=== PATIENT | male | born 1975 | race Caucasian/White ===

== ENCOUNTER 2018-09-13 08:24 | Emergency (ER) | payer SELFPAY ==
[~2018-09-13] VITALS: Ht 175.3 cm; Wt 79.4 kg
[2018-09-13 08:30] VITALS: BP 110/97
--- NOTE | 2018-09-13 08:34 | NUR ---
ED Nurse Note: Patient brought in to ER by ambulance from friend's house due to RLQ abdominal sharp pain / which started by 0730 this morning. pt aao x4 and calm and cooperative. pt is ambulatory and skin warm to touch and no skin issue noted at this moment.
--- NOTE | 2018-09-13 08:42 | Emergency Room Report ---
History of Present Illness General Chief Complaint: Abdominal Pain Source: Patient Present Illness HPI Patient presents via EMS with right lower quadrant pain. This began gradually but then became severe this morning. It's that sharp stabbing pain 9/10 at this time. He took his last [place] earlier today with some minimal relief. There is no nausea, vomiting or diarrhea. He moved his bowels normally yesterday ("large dump".). Denies fevers or chills. He's never had pain like this before. He denies history of renal stones. He does suffer from chronic back pain. He feels this is not related to that. There is no dysuria or hematuria. The patient is a smoker. He also admits to THC use. Is any other drugs. He recently moved from [place]. He claims he has had a stroke several years ago and also is status post myocardial infarction. Allergies: Coded Allergies: KETOROLAC (Verified Allergy, Unknown, 09/13/18) LATEX (Verified Allergy, Unknown, 09/13/18) TRAMADOL (Verified Allergy, Unknown, 09/13/18) Patient History Past Medical History: see triage record Social History: Reports: smoking, drug use - THC Social History Narrative recent moved from [facility] Reviewed Nursing Documentation: PMH: Agreed; PSxH: Agreed Nursing Documentation-PMH Hx Cardiac Problems: Yes Hx Hypertension: Yes Review of Systems All Other Systems: negative except mentioned in HPI Physical Exam Vital Signs Date Time Temp Pulse Resp B/P (MAP) Pulse Ox O2 Delivery O2 Flow Rate FiO2 09/13/18 08:23 98.8 90 18 130/90 100 Room Air Sp02 EP Interpretation: reviewed, normal General Appearance: well appearing, GCS 15, mild distress - With pain Head: normocephalic Eyes: bilateral eye normal inspection, bilateral eye PERRL ENT: moist mucus membranes - Poor dentition Neck: supple Respiratory: lungs clear, normal breath sounds Cardiovascular #1: regular rate, rhythm Cardiovascular #2: 2+ radial (R) Gastrointestinal: normal bowel sounds, no mass, non-distended, no rebound, guarding - Right lower quadrant, tenderness Genitourinary: no CVA tenderness Musculoskeletal: back normal, normal range of motion Neurologic: alert, oriented x3, grossly normal Psychiatric: mood/affect normal Skin: normal inspection, warm/dry Medical Decision Making Diagnostic Impression: Primary Impression: Abdominal pain Qualified Codes: R10.31 - Right lower quadrant pain Additional Impression: Proctitis ER Course Patient presents with right lower quadrant pain. Differential includes muscle strain, renal stone, appendicitis, urinary tract infection amongst others. The patient will be evaluated with labs, chest x-ray and CT the abdomen with contrast. The patient will be treated with IV hydration, Reglan, Benadryl and a small dose of morphine. EKG without injury. CXR with scarring. WBC cassy. CMP unremarkable. UA clear. Tox THC. CT with proctitis vs impaction. Patient again reports no problems moving his bowels. Exam improved. Discussed findings. Antibiotics started for proctitis. Patient stable for outpatient observation and treatment. Laboratory Tests Test 09/13/18 08:50 09/13/18 09:01 White Blood Count 7.5 K/UL (4.8-10.8) Red Blood Count 4.78 M/UL (4.70-6.10) Hemoglobin 11.5 G/DL (14.2-18.0) L Hematocrit 35.9 % (42.0-52.0) L Mean Corpuscular Volume 75 FL (80-99) L Mean Corpuscular Hemoglobin 24.0 PG (27.0-31.0) L Mean Corpuscular Hemoglobin Concent 32.0 G/DL (32.0-36.0) Red Cell Distribution Width 16.6 % (11.6-14.8) H Platelet Count 331 K/UL (150-450) Mean Platelet Volume 5.4 FL (6.5-10.1) L Neutrophils (%) (Auto) 71.2 % (45.0-75.0) Lymphocytes (%) (Auto) 17.6 % (20.0-45.0) L Monocytes (%) (Auto) 8.1 % (1.0-10.0) Eosinophils (%) (Auto) 1.4 % (0.0-3.0) Basophils (%) (Auto) 1.7 % (0.0-2.0) Prothrombin Time 11.2 SEC (9.30-11.50) Prothrombin Time INR 1.1 (0.9-1.1) PTT 28 SEC (23-33) Sodium Level 140 MMOL/L (136-145) Potassium Level 3.8 MMOL/L (3.5-5.1) Chloride Level 104 MMOL/L (98-107) Carbon Dioxide Level 24 MMOL/L (21-32) Anion Gap 12 mmol/L (5-15) Blood Urea Nitrogen 14 mg/dL (7-18) Creatinine 0.8 MG/DL (0.55-1.30) Estimate Glomerular Filtration Rate > 60 mL/min (>60) Glucose Level 95 MG/DL (74-106) Calcium Level 8.7 MG/DL (8.5-10.1) Total Bilirubin 0.3 MG/DL (0.2-1.0) Aspartate Amino Transferase (AST) 17 U/L (15-37) Alanine Aminotransferase (ALT) 27 U/L (12-78) Alkaline Phosphatase 92 U/L (46-116) Total Creatine Kinase 243 U/L (26-308) Total Protein 7.3 G/DL (6.4-8.2) Albumin 4.1 G/DL (3.4-5.0) Globulin 3.2 g/dL Albumin/Globulin Ratio 1.3 (1.0-2.7) Lipase 196 U/L (73-393) Urine Color Yellow Urine Appearance Clear Urine pH 5 (4.5-8.0) Urine Specific [place] 1.025 (1.005-1.035) Urine Protein Negative (NEGATIVE) Urine Glucose (UA) Negative (NEGATIVE) Urine Ketones 1+ (NEGATIVE) H Urine Blood Negative (NEGATIVE) Urine Nitrite Negative (NEGATIVE) Urine Bilirubin Negative (NEGATIVE) Urine Urobilinogen 1 MG/DL (0.0-1.0) H Urine Leukocyte Esterase 1+ (NEGATIVE) H Urine RBC 0 /HPF (0 - 0) Urine WBC 0-2 /HPF (0 - 0) Urine Squamous Epithelial Cells Occasional /LPF Urine Bacteria Occasional /HPF (NONE) Urine Mucus Occasional /LPF Urine Opiates Screen Negative (NEGATIVE) Urine Barbiturates Screen Negative (NEGATIVE) Phencyclidine (PCP) Screen Negative (NEGATIVE) Urine Amphetamines Screen Negative (NEGATIVE) Urine Benzodiazepines Screen Negative (NEGATIVE) Urine Cocaine Screen Negative (NEGATIVE) Urine Marijuana (THC) Screen Positive (NEGATIVE) H EKG Diagnostic Results Rate: normal Rhythm: NSR ST Segments: no acute changes Rhythm Strip Diag. Results EP Interpretation: yes Rhythm: NSR, no PVC's, no ectopy Chest X-Ray Diagnostic Results Chest X-Ray Diagnostic Results : Chest X-Ray Ordered: Yes # of Views/Limited/Complete: 1 View Indication: Other EP Interpretation: Yes Interpretation: no consolidation, no effusion, no pneumothorax, other - scarring Impression: Other Electronically Signed by: Electronically signed by Sha Hatch MD CT/MRI/US Diagnostic Results CT/MRI/US Diagnostic Results : Imaging Test Ordered: Abdomen/pelvis Impression proctitis vs impaction Last Vital Signs Date Time Temp Pulse Resp B/P (MAP) Pulse Ox O2 Delivery O2 Flow Rate FiO2 09/13/18 12:51 97.8 90 17 114/71 97 Room Air Status: improved Disposition: HOME, SELF-CARE Condition: Improved Scripts Hydrocodone Bit/Acetaminophen 5-325* (NORCO 5-325*) 1 Each Tablet 1 TAB ORAL Q6H PRN for For Pain, #6 TAB 0 Refills Prov: Sha Hatch MD 09/13/18 Levofloxacin* (LEVAQUIN*) 500 Mg Tablet 500 MG ORAL DAILY, #7 TAB Prov: Sha Hatch MD 09/13/18 Metronidazole* (FLAGYL*) 500 Mg Tablet 500 MG ORAL BID, #14 TAB Prov: Sha Hatch MD 09/13/18 Sha Hatch MD Sep 13, 2018 08:42
[2018-09-13] MEDS ORDERED: Morphine Sulfate 2mg/ml Inj(IV/IM USE ONLY) IVP ONE (08:45)
[2018-09-13] MEDS ORDERED: Isovue-300 100ml vial INJ PRN (08:45)
[2018-09-13] MEDS ORDERED: DiphenhydrAMINE 50mg/ml Inj IVP ONE (08:45)
[2018-09-13] MEDS ORDERED: Metoclopramide 10mg/2ml Inj IVP ONE (08:45)
[2018-09-13 09:03] LABS: BASOPHILS % (AUTO) 1.7 % (0.0-2.0); EOSINOPHILS % (AUTO) 1.4 % (0.0-3.0); HEMATOCRIT 35.9 % (42.0-52.0); HEMOGLOBIN 11.5 G/DL (14.2-18.0); LYMPHOCYTES % (AUTO) 17.6 % (20.0-45.0); MEAN CORPUSCULAR VOLUME 75 FL (80-99); MONOCYTES % (AUTO) 8.1 % (1.0-10.0); NEUTROPHILS % (AUTO) 71.2 % (45.0-75.0); PLATELET COUNT 331 K/UL (150-450); RED BLOOD COUNT 4.78 M/UL (4.70-6.10); RED CELL DISTRIBUTION WIDTH 16.6 % (11.6-14.8); WHITE BLOOD COUNT 7.5 K/UL (4.8-10.8)
[2018-09-13 09:04] LABS: APPEARANCE,URINE CLEAR; BILIRUBIN, URINE NEGATIVE (NEGATIVE); GLUCOSE, URINE (UA) NEGATIVE (NEGATIVE); KETONES,URINE 1+ (NEGATIVE); LEUKOCYTE ESTERASE ,URINE 1+ (NEGATIVE); NITRITE,URINE NEGATIVE (NEGATIVE); PH,URINE 5 (4.5-8.0); PROTEIN,URINE NEGATIVE (NEGATIVE); UROBILINOGEN,URINE 1 MG/DL (0.0-1.0)
[2018-09-13 09:10] LABS: INR 1.1 (0.9-1.1)
[2018-09-13 09:11] LABS: ANION GAP 12 mmol/L (5-15); BLOOD UREA NITROGEN 14 mg/dL (7-18); CALCIUM 8.7 MG/DL (8.5-10.1); CARBON DIOXIDE 24 MMOL/L (21-32); CHLORIDE 104 MMOL/L (98-107); CREATININE 0.8 MG/DL (0.55-1.30); POTASSIUM 3.8 MMOL/L (3.5-5.1); SODIUM 140 MMOL/L (136-145)
[2018-09-13 09:16] LABS: ALANINE AMINOTRANSFERASE 27 U/L (12-78); ALBUMIN 4.1 G/DL (3.4-5.0); ALBUMIN/GLOBULIN RATIO 1.3 (1.0-2.7); ALKALINE PHOSPHATASE 92 U/L (46-116); ASPARTATE AMINO TRANSFERASE 17 U/L (15-37); BILIRUBIN,TOTAL 0.3 MG/DL (0.2-1.0); CREATINE KINASE 243 U/L (26-308)
[2018-09-13 09:18] LABS: COLOR,URINE YELLOW
--- NOTE | 2018-09-13 09:35 | NUR ---
ED Nurse Note: Pt reported pain level 6/10 and reported to ERMD. no new order at this moment. pt went down to CT scan in stable condition.
--- NOTE | 2018-09-13 09:35 | Diagnostic Imaging Report ---
EXAM: XR Chest, 1 View CLINICAL HISTORY: ABD PAIN TECHNIQUE: Frontal view of the chest. COMPARISON: Chest x-ray 10/01/11 FINDINGS: Lungs: Unremarkable. No consolidation. Pleural space: Unremarkable. No pneumothorax. Heart: Unremarkable. No cardiomegaly. Mediastinum: Unremarkable. Bones/joints: Unremarkable. Vasculature: Mild aortic knob calcification. Upper abdomen: Gassy bowel loops in the upper abdomen. IMPRESSION: No acute findings.
[2018-09-13 10:37] VITALS: BP 127/84
--- NOTE | 2018-09-13 10:39 | Diagnostic Imaging Report ---
EXAM: CT Abdomen and Pelvis With Intravenous Contrast CLINICAL HISTORY: ABD TEND TECHNIQUE: Axial computed tomography images of the abdomen and pelvis with intravenous contrast. CTDI is 14.79 mGy and DLP is 788 mGy-cm. One or more of the following dose reduction techniques were used: automated exposure control, adjustment of the mA and/or kV according to patient size, use of iterative reconstruction technique. COMPARISON: No relevant prior studies available. FINDINGS: Lung bases: Unremarkable. No mass. No consolidation. Mediastinum: Small hiatal hernia. ABDOMEN: Liver: Unremarkable. No mass. Gallbladder and bile ducts: Unremarkable. No calcified stones. No ductal dilation. Pancreas: Unremarkable. No mass. No ductal dilation. Spleen: Unremarkable. No splenomegaly. Adrenals: Unremarkable. No mass. Kidneys and ureters: Unremarkable. No solid mass. No hydronephrosis. Stomach and bowel: Distal rectum is fecal distended to 7.4 cm with mild perirectal thickening. May be fecal impaction cannot exclude a mild proctitis. Gassy dilated remainder of the colon measuring up to 6 cm. Redundant sigmoid colon. There is narrowing at the rectosigmoid junction without definite mass or twisting. Maybe an ileus cannot exclude a low- grade distal colonic obstruction. PELVIS: Appendix: Normal appendix. Bladder: Thickening of the urinary bladder, correlate for cystitis. Reproductive: Unremarkable as visualized. ABDOMEN and PELVIS: Intraperitoneal space: Unremarkable. No free air. No significant fluid collection. Bones/joints: No acute fracture. No dislocation. Soft tissues: Small bilateral fat-containing inguinal hernias. Vasculature: Unremarkable. No abdominal aortic aneurysm. Lymph nodes: Small mesenteric and bilateral inguinal lymph nodes. IMPRESSION: 1. Distal rectum is fecal distended to 7.4 cm with mild perirectal thickening. May be fecal impaction cannot exclude a mild proctitis. Gassy dilated remainder of the colon measuring up to 6 cm. Redundant sigmoid colon. There is narrowing at the rectosigmoid junction without definite mass or twisting. Maybe an ileus cannot exclude a low-grade distal colonic obstruction. 2. Thickening of the urinary bladder, correlate for cystitis.
--- NOTE | 2018-09-13 11:02 | NUR ---
ED Nurse Note: Pt c/o abdominal pain 12/17. ERMD made aware.
[2018-09-13] MEDS ORDERED: oxyCODONE HCL/Acetaminophen 5/325mg ORAL ONE (11:15)
--- NOTE | 2018-09-13 11:54 | NUR ---
ED Nurse Note: Pt requested to talke to doctor. ERMD made aware.
--- NOTE | 2018-09-13 12:09 | NUR ---
ED Nurse Note: ERMD at bedside.
[2018-09-13] MEDS ORDERED: NORCO 5-325 TA1 EACH ORAL (12:33)
[2018-09-13] MEDS ORDERED: LEVAQUIN500 MG ORAL (12:33)
[2018-09-13] MEDS ORDERED: METRONIDAZOLE500 MG ORAL (12:33)
--- NOTE | 2018-09-13 12:35 | NUR ---
ED Nurse Note: Taxi voucher provided. address [address] [place] [address] was provided by patient.
[2018-09-13] MEDS ORDERED: Levofloxacin 500mg tab ORAL ONE (12:45)
[2018-09-13] MEDS ORDERED: metroNIDAZOLE 500mg tab ORAL ONE (12:45)
[2018-09-13 12:51] VITALS: BP 114/71
--- NOTE | 2018-09-13 12:52 | NUR ---
ER DISCHARGE NOTE: Patient is cleared to be discharged per ERMD, pt is aox4, on room air, with stable vital signs. pt was given dc and prescription instructions, pt was able to verbalize understanding, taxi voucher was provided to original address, pt id band and iv site removed without complications. pt is able to ambulate with steady gait. pt took all belongings. [place] and juice were provided as pt's request.
== END 2018-09-13 13:09 | disposition home or self-care (01) ==
LOC: EDBD 08:24 → EDSEX 08:24 → EMR 08:57
DX: N41.9 Inflammatory disease of prostate, unspecified (principal); R10.31 Right lower quadrant pain; I10 Essential (primary) hypertension; Z88.6 Allergy status to analgesic agent; Z91.040 Latex allergy status; F17.200 Nicotine dependence, unspecified, uncomplicated; F12.10 Cannabis abuse, uncomplicated
CPT/HCPCS: 36415; 71045; 74177; 80053; 80307; 81003; 82550; 83690; 85025; 85610; 85730; 96361; 96374; 96375; 99284; J1200; J2270; J2765; Q9967

== ENCOUNTER 2018-12-09 17:47 | Emergency (ER) | payer MEDICAID ==
[~2018-12-09] VITALS: Ht 185.4 cm; Wt 83.9 kg
[~2018-12-09 17:47] MED LIST: LEVAQUIN500 MG ORAL; METRONIDAZOLE500 MG ORAL; NORCO 5-325 TA1 EACH ORAL
[2018-12-09 18:00] VITALS: BP 108/78
[2018-12-09] MEDS ORDERED: oxyCODONE HCL/Acetaminophen 5/325mg ORAL ONE (18:15)
[2018-12-09] MEDS ORDERED: DiphenhydrAMINE 50mg/ml Inj IVP ONE (18:15)
[2018-12-09] MEDS ORDERED: Acetaminophen 500mg (ES) tab ORAL ONE (18:15)
[2018-12-09] MEDS ORDERED: Metoclopramide 10mg/2ml Inj IVP ONE (18:15)
--- NOTE | 2018-12-09 18:16 | Emergency Room Report ---
History of Present Illness General Chief Complaint: Chest Pain Source: Patient, EMS Present Illness HPI The patient is brought in by EMS. He started having substernal left-sided chest pain while he stood up on a bus. He also felt some left-sided weakness at that time. Paramedics evaluated with an EKG that was normal. They gave him 2 baby aspirin. No nitroglycerin was administered. The patient states that he had a heart attack in 2012 but says that no angioplasty or stent placed, although he had an angiogram at that time that was "normal". He also claims that he has had a stroke in the past, there is no residual. He suffers from PTSD and was going to a gathering of a group of men for overnight on a boat. He smokes cigarettes. He denies diabetes but is treated for cholesterol and hypertension. No fevers, chills, palpitations, nausea, vomiting, diarrhea, dysuria, abdominal pain, shortness of breath, visual changes, headache. His PTSD is from observing his father murder his mother on his [age] birthday Allergies: Coded Allergies: KETOROLAC (Verified Allergy, Unknown, 09/13/18) LATEX (Verified Allergy, Unknown, 09/13/18) TRAMADOL (Verified Allergy, Unknown, 09/13/18) Patient History Past Medical History: see triage record Social History: Reports: smoking, drug use - THC; Denies: alcohol use Social History Narrative Lives in [place] Reviewed Nursing Documentation: PMH: Agreed; PSxH: Agreed Nursing Documentation-[facility] Past Medical History: No History, Except For Hx Cardiac Problems: Yes - Heart attack Hx Hypertension: Yes Review of Systems All Other Systems: negative except mentioned in HPI Physical Exam Vital Signs Date Time Temp Pulse Resp B/P (MAP) Pulse Ox O2 Delivery O2 Flow Rate FiO2 12/09/18 17:50 98.2 70 18 108/78 (88) 99 Room Air Sp02 EP Interpretation: reviewed, normal General Appearance: well appearing, no apparent distress, GCS 15 Head: normocephalic, atraumatic Eyes: bilateral eye normal inspection, bilateral eye PERRL - Pinpoint pupils, bilateral eye EOMI ENT: moist mucus membranes Neck: supple Respiratory: lungs clear, normal breath sounds Cardiovascular #1: regular rate, rhythm Cardiovascular #2: 2+ radial (R) Gastrointestinal: normal inspection, normal bowel sounds, non tender, no mass, non-distended Genitourinary: no CVA tenderness Musculoskeletal: back normal, gait/station normal, normal range of motion Neurologic: alert, oriented x3, 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 Differential includes acute myocardial infarction, acute coronary syndrome, chest wall pain, reflux disease, stroke amongst others. Patient will be evaluated with EKG, chest x-ray and labs. Aspirin has already chest x-ray no infiltrates. Been administered. The patient will receive Reglan, Benadryl and Percocet. EKG normal sinus rhythm with a normal EKG. Rate 92. Chest x-ray no infiltrates. Labs remarkable for negative troponin. Tox screen positive for THC. Patient is improved with treatment. He feels slightly sleepy after Benadryl. Discussed findings with patient. With a negative angiogram recently with possibility of myocardial injury is low. There is no evidence of stroke at this time. Patient stable for outpatient observation and treatment. Laboratory Tests Test 12/09/18 17:58 12/09/18 18:28 White Blood Count 6.5 K/UL (4.8-10.8) Red Blood Count 4.72 M/UL (4.70-6.10) Hemoglobin 11.0 G/DL (14.2-18.0) L Hematocrit 34.9 % (42.0-52.0) L Mean Corpuscular Volume 74 FL (80-99) L Mean Corpuscular Hemoglobin 23.2 PG (27.0-31.0) L Mean Corpuscular Hemoglobin Concent 31.4 G/DL (32.0-36.0) L Red Cell Distribution Width 15.4 % (11.6-14.8) H Platelet Count 449 K/UL (150-450) Mean Platelet Volume 5.3 FL (6.5-10.1) L Neutrophils (%) (Auto) 60.3 % (45.0-75.0) Lymphocytes (%) (Auto) 24.5 % (20.0-45.0) Monocytes (%) (Auto) 11.8 % (1.0-10.0) H Eosinophils (%) (Auto) 2.2 % (0.0-3.0) Basophils (%) (Auto) 1.2 % (0.0-2.0) Prothrombin Time 11.1 SEC (9.30-11.50) Prothrombin Time INR 1.0 (0.9-1.1) PTT 29 SEC (23-33) Sodium Level 143 MMOL/L (136-145) Potassium Level 3.8 MMOL/L (3.5-5.1) Chloride Level 106 MMOL/L (98-107) Carbon Dioxide Level 26 MMOL/L (21-32) Anion Gap 11 mmol/L (5-15) Blood Urea Nitrogen 20 mg/dL (7-18) H Creatinine 1.0 MG/DL (0.55-1.30) Estimate Glomerular Filtration Rate > 60 mL/min (>60) Glucose Level 109 MG/DL (74-106) H Calcium Level 9.2 MG/DL (8.5-10.1) Total Bilirubin 0.3 MG/DL (0.2-1.0) Aspartate Amino Transferase (AST) 16 U/L (15-37) Alanine Aminotransferase (ALT) 21 U/L (12-78) Alkaline Phosphatase 88 U/L (46-116) Total Creatine Kinase 238 U/L (26-308) Troponin I 0.000 ng/mL (0.000-0.056) Pro-B-Type Natriuretic Peptide 49 pg/mL (0-125) Total Protein 7.1 G/DL (6.4-8.2) Albumin 4.3 G/DL (3.4-5.0) Globulin 2.8 g/dL Albumin/Globulin Ratio 1.5 (1.0-2.7) Urine Color [place] Urine Appearance Clear Urine pH 5 (4.5-8.0) Urine Specific [place] 1.025 (1.005-1.035) Urine Protein 1+ (NEGATIVE) H Urine Glucose (UA) Negative (NEGATIVE) Urine Ketones 1+ (NEGATIVE) H Urine Blood Negative (NEGATIVE) Urine Nitrite Negative (NEGATIVE) Urine Bilirubin Negative (NEGATIVE) Urine Ictotest Negative (NEGATIVE) Urine Urobilinogen 4 MG/DL (0.0-1.0) H Urine Leukocyte Esterase 1+ (NEGATIVE) H Urine RBC 0-2 /HPF (0 - 0) H Urine WBC 0-2 /HPF (0 - 0) Urine Squamous Epithelial Cells Occasional /LPF Urine Bacteria Occasional /HPF (NONE) Urine Mucus Few /LPF (NONE/OCC) H Urine Opiates Screen Negative (NEGATIVE) Urine Barbiturates Screen Negative (NEGATIVE) Phencyclidine (PCP) Screen Negative (NEGATIVE) Urine Amphetamines Screen Negative (NEGATIVE) Urine Benzodiazepines Screen Negative (NEGATIVE) Urine Cocaine Screen Negative (NEGATIVE) Urine Marijuana (THC) Screen Positive (NEGATIVE) H EKG Diagnostic Results Rate: normal Rhythm: NSR ST Segments: no acute changes Rhythm Strip Diag. Results EP Interpretation: yes Rhythm: NSR, no PVC's, no ectopy Chest X-Ray Diagnostic Results Chest X-Ray Diagnostic Results : Chest X-Ray Ordered: Yes # of Views/Limited/Complete: 1 View Indication: Chest Pain EP Interpretation: Yes Interpretation: no consolidation, no effusion, no pneumothorax Impression: No acute disease Electronically Signed by: Electronically signed by Sha Hatch MD Last Vital Signs Date Time Temp Pulse Resp B/P (MAP) Pulse Ox O2 Delivery O2 Flow Rate FiO2 12/09/18 20:47 98.2 80 16 115/75 99 Room Air Status: improved Disposition: HOME, SELF-CARE Condition: Improved Scripts Acetaminophen (Tylenol) 325 Mg Tablet 650 MG ORAL Q6H PRN for Prn Pain/Headache/Temp > 101, #20 TAB 0 Refills Prov: Sha Hatch MD 12/09/18 Famotidine (PEPCID AC) 20 Mg Tablet 20 MG PO DAILY, #20 TAB Prov: Sha Hatch MD 12/09/18 Sha Hatch MD Dec 09, 2018 18:16
[2018-12-09 18:27] LABS: BASOPHILS % (AUTO) 1.2 % (0.0-2.0); EOSINOPHILS % (AUTO) 2.2 % (0.0-3.0); HEMATOCRIT 34.9 % (42.0-52.0); LYMPHOCYTES % (AUTO) 24.5 % (20.0-45.0); MEAN CORPUSCULAR VOLUME 74 FL (80-99); MONOCYTES % (AUTO) 11.8 % (1.0-10.0); NEUTROPHILS % (AUTO) 60.3 % (45.0-75.0); PLATELET COUNT 449 K/UL (150-450); RED BLOOD COUNT 4.72 M/UL (4.70-6.10); RED CELL DISTRIBUTION WIDTH 15.4 % (11.6-14.8); WHITE BLOOD COUNT 6.5 K/UL (4.8-10.8)
[2018-12-09] MEDS ORDERED: ATORVASTATIN CA10 MG ORAL (18:29)
[2018-12-09] MEDS ORDERED: ASPIR 8181 MG ORAL (18:29)
[2018-12-09] MEDS ORDERED: LISINOPRIL5 MG ORAL (18:29)
[2018-12-09 18:45] LABS: APPEARANCE,URINE CLEAR; BILIRUBIN, URINE NEGATIVE (NEGATIVE); GLUCOSE, URINE (UA) NEGATIVE (NEGATIVE); KETONES,URINE 1+ (NEGATIVE); LEUKOCYTE ESTERASE ,URINE 1+ (NEGATIVE); NITRITE,URINE NEGATIVE (NEGATIVE); PH,URINE 5 (4.5-8.0); PROTEIN,URINE 1+ (NEGATIVE); UROBILINOGEN,URINE 4 MG/DL (0.0-1.0)
[2018-12-09 18:49] LABS: COLOR,URINE AMBER
[2018-12-09 18:52] LABS: ALANINE AMINOTRANSFERASE 21 U/L (12-78); ALBUMIN 4.3 G/DL (3.4-5.0); ALBUMIN/GLOBULIN RATIO 1.5 (1.0-2.7); ALKALINE PHOSPHATASE 88 U/L (46-116); ANION GAP 11 mmol/L (5-15); ASPARTATE AMINO TRANSFERASE 16 U/L (15-37); BILIRUBIN,TOTAL 0.3 MG/DL (0.2-1.0); BLOOD UREA NITROGEN 20 mg/dL (7-18); CALCIUM 9.2 MG/DL (8.5-10.1); CARBON DIOXIDE 26 MMOL/L (21-32); CHLORIDE 106 MMOL/L (98-107); CREATINE KINASE 238 U/L (26-308); POTASSIUM 3.8 MMOL/L (3.5-5.1); SODIUM 143 MMOL/L (136-145)
[2018-12-09 20:04] VITALS: BP 115/75
[2018-12-09] MEDS ORDERED: PEPCID AC20 M2 PO (20:32)
[2018-12-09] MEDS ORDERED: TYLENOL325 MG ORAL (20:32)
[2018-12-09 20:47] VITALS: BP 115/75
--- NOTE | 2018-12-10 12:51 | Diagnostic Imaging Report ---
Indication: Chest pain Comparison: 09/13/2018 A single view chest radiograph was obtained. Findings: Cardiomediastinal appearance is within normal limits for age. The lungs are clear. Pulmonary vascularity is appropriate. The diaphragmatic contour is smooth and costophrenic angles are sharp. No pleural effusions are identified. The bones are unremarkable. Impression: No acute findings
--- NOTE | 2018-12-10 15:33 | Cardiology Report ---
APPROVED REPORT EKG Measurement Heart [id number] Normal sinus rhythm Normal ECG
== END 2018-12-09 20:35 | disposition home or self-care (01) ==
LOC: EDBD 17:47 → EMR 18:22
DX: R07.9 Chest pain, unspecified (principal); F43.10 Post-traumatic stress disorder, unspecified; X58.XXXA Exposure to other specified factors, initial encounter; Y92.9 Unspecified place or not applicable; F17.200 Nicotine dependence, unspecified, uncomplicated; E78.00 Pure hypercholesterolemia, unspecified; I10 Essential (primary) hypertension; I25.2 Old myocardial infarction; Z86.73 Personal history of transient ischemic attack (TIA), and cerebral infarction without residual deficits; F12.90 Cannabis use, unspecified, uncomplicated
CPT/HCPCS: 36415; 71045; 80053; 80307; 81003; 82550; 83880; 84484; 85025; 85610; 85730; 93005; 96374; 99284; J2765

== ENCOUNTER 2019-02-09 15:10 | Emergency (ER) | payer MEDICAID ==
[~2019-02-09] VITALS: Ht 185.4 cm; Wt 83.9 kg
[~2019-02-09 15:10] MED LIST changes: +ASPIR 8181 MG ORAL; +ATORVASTATIN CA10 MG ORAL; +LISINOPRIL5 MG ORAL; +PEPCID AC20 M2 PO; +TYLENOL325 MG ORAL
--- NOTE | 2019-02-09 15:24 | NUR ---
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 pt placed on monitor blood and urine sent.
[2019-02-09 15:27] VITALS: BP 112/73
--- NOTE | 2019-02-09 15:28 | Emergency Room Report ---
History of Present Illness General Chief Complaint: Chest Pain Present Illness HPI 43-year-old male history of angioplasty states that he had a heart attack in 2013 but says that no angioplasty or stent placed, although he had an angiogram at that time that was "normal". He also claims that he has had a stroke in the past, presents with chest pain 1 hour prior to arrival, constant no aggravating or alleviating factors, patient endorses shortness of breath, severity is moderate, no cough no congestion patient presents for evaluation Allergies: Coded Allergies: KETOROLAC (Verified Allergy, Unknown, 09/13/18) LATEX (Verified Allergy, Unknown, 09/13/18) TRAMADOL (Verified Allergy, Unknown, 09/13/18) Patient History Past Medical History: see triage record Social History: Reports: smoking Reviewed Nursing Documentation: PMH: Agreed; PSxH: Agreed Nursing Documentation-PMH Hx Cardiac Problems: Yes - Heart attack Hx Hypertension: Yes Review of Systems All Other Systems: negative except mentioned in HPI Physical Exam Vital Signs Date Time Temp Pulse Resp B/P (MAP) Pulse Ox O2 Delivery O2 Flow Rate FiO2 02/09/19 14:59 98.2 72 18 112/73 (86) 98 Room Air Sp02 EP Interpretation: reviewed, normal General Appearance: well appearing, no apparent distress, alert Head: normocephalic, atraumatic Eyes: bilateral eye PERRL, bilateral eye EOMI ENT: uvula midline, moist mucus membranes Neck: supple, thyroid normal, supple/symm/no masses Respiratory: lungs clear, no respiratory distress, no retraction, no accessory muscle use Cardiovascular #1: normal peripheral pulses, regular rate, rhythm, no edema, no gallop, no murmur Gastrointestinal: non tender, soft, no guarding, no rebound Musculoskeletal: normal inspection Neurologic: alert, oriented x3 Psychiatric: mood/affect normal Skin: no rash, warm/dry Medical Decision Making ER Course 43-year-old male multiple risk factors however patient in no acute distress. No evidence of ACS, pulmonary embolism, pneumothorax, pneumonia. Historically not abrupt in onset, tearing or ripping, pulses symmetric, no evidence of aortic dissection. 4:10 PM, patient found sleeping comfortably in bed Will disposition patient home with return precautions Laboratory Tests Test 02/09/19 15:19 White Blood Count 5.9 K/UL (4.8-10.8) Red Blood Count 4.54 M/UL (4.70-6.10) L Hemoglobin 10.6 G/DL (14.2-18.0) L Hematocrit 32.4 % (42.0-52.0) L Mean Corpuscular Volume 71 FL (80-99) L Mean Corpuscular Hemoglobin 23.4 PG (27.0-31.0) L Mean Corpuscular Hemoglobin Concent 32.7 G/DL (32.0-36.0) Red Cell Distribution Width 16.4 % (11.6-14.8) H Platelet Count 329 K/UL (150-450) Mean Platelet Volume 4.8 FL (6.5-10.1) L Neutrophils (%) (Auto) 61.1 % (45.0-75.0) Lymphocytes (%) (Auto) 28.0 % (20.0-45.0) Monocytes (%) (Auto) 6.2 % (1.0-10.0) Eosinophils (%) (Auto) 3.0 % (0.0-3.0) Basophils (%) (Auto) 1.8 % (0.0-2.0) Prothrombin Time 10.7 SEC (9.30-11.50) Prothrombin Time INR 1.0 (0.9-1.1) PTT 28 SEC (23-33) Sodium Level 145 MMOL/L (136-145) Potassium Level 4.0 MMOL/L (3.5-5.1) Chloride Level 109 MMOL/L (98-107) H Carbon Dioxide Level 23 MMOL/L (21-32) Anion Gap 13 mmol/L (5-15) Blood Urea Nitrogen 15 mg/dL (7-18) Creatinine 0.6 MG/DL (0.55-1.30) Estimate Glomerular Filtration Rate > 60 mL/min (>60) Glucose Level 92 MG/DL (74-106) Calcium Level 9.0 MG/DL (8.5-10.1) Total Bilirubin 0.2 MG/DL (0.2-1.0) Aspartate Amino Transferase (AST) 15 U/L (15-37) Alanine Aminotransferase (ALT) 22 U/L (12-78) Alkaline Phosphatase 83 U/L (46-116) Total Creatine Kinase 174 U/L (26-308) Creatine Kinase MB 1.8 NG/ML (0.0-3.6) Creatine Kinase MB Relative Index 1.0 Troponin I 0.004 ng/mL (0.000-0.056) Total Protein 7.2 G/DL (6.4-8.2) Albumin 3.9 G/DL (3.4-5.0) Globulin 3.3 g/dL Albumin/Globulin Ratio 1.2 (1.0-2.7) Lipase 219 U/L (73-393) Urine Opiates Screen Negative (NEGATIVE) Urine Barbiturates Screen Negative (NEGATIVE) Phencyclidine (PCP) Screen Negative (NEGATIVE) Urine Amphetamines Screen Negative (NEGATIVE) Urine Benzodiazepines Screen Negative (NEGATIVE) Urine Cocaine Screen Negative (NEGATIVE) Urine Marijuana (THC) Screen Positive (NEGATIVE) H EKG Diagnostic Results EKG Time: 15:11 EP Interpretation: NSR, rate 72, QTc 416, no acute ST elevations, normal axis Rate: normal Rhythm: NSR ST Segments: no acute changes Rhythm Strip Diag. Results Rhythm Strip Time: 15:30 EP Interpretation: yes Rate: 72 Rhythm: NSR, no PVC's, no ectopy Chest X-Ray Diagnostic Results Chest X-Ray Diagnostic Results : Chest X-Ray Ordered: Yes # of Views/Limited/Complete: 1 View Indication: Chest Pain Interpretation: no consolidation, no effusion, no pneumothorax, no acute cardiopulmonary disease Impression: No acute disease Electronically Signed by: Venkat Collier MD Last Vital Signs Date Time Temp Pulse Resp B/P (MAP) Pulse Ox O2 Delivery O2 Flow Rate FiO2 02/09/19 15:27 98.2 18 112/73 98 Room Air 02/09/19 14:59 72 Disposition: HOME, SELF-CARE Condition: Stable [facility] Patient Instructions: Nonspecific Chest Pain Additional Instructions: The patient was provided with discharge instructions, notified to follow-up with a primary care doctor and or specialist in the next 24-48 hours, and to return to the ED if they have worsening of their symptoms. Please note that this report is being documented using [employer] technology. This can lead to erroneous entry secondary to incorrect interpretation by the dictating instrument. Venkat Collier MD Feb 09, 2019 15:28
[2019-02-09 16:04] LABS: BASOPHILS % (AUTO) 1.8 % (0.0-2.0); HEMATOCRIT 32.4 % (42.0-52.0); HEMOGLOBIN 10.6 G/DL (14.2-18.0); MEAN CORPUSCULAR VOLUME 71 FL (80-99); MONOCYTES % (AUTO) 6.2 % (1.0-10.0); NEUTROPHILS % (AUTO) 61.1 % (45.0-75.0); PLATELET COUNT 329 K/UL (150-450); RED BLOOD COUNT 4.54 M/UL (4.70-6.10); RED CELL DISTRIBUTION WIDTH 16.4 % (11.6-14.8); WHITE BLOOD COUNT 5.9 K/UL (4.8-10.8)
[2019-02-09 16:11] LABS: ANION GAP 13 mmol/L (5-15); BLOOD UREA NITROGEN 15 mg/dL (7-18); CARBON DIOXIDE 23 MMOL/L (21-32); CHLORIDE 109 MMOL/L (98-107); CREATININE 0.6 MG/DL (0.55-1.30); SODIUM 145 MMOL/L (136-145)
[2019-02-09 16:25] LABS: ALANINE AMINOTRANSFERASE 22 U/L (12-78); ALBUMIN 3.9 G/DL (3.4-5.0); ALBUMIN/GLOBULIN RATIO 1.2 (1.0-2.7); ALKALINE PHOSPHATASE 83 U/L (46-116); ASPARTATE AMINO TRANSFERASE 15 U/L (15-37); BILIRUBIN,TOTAL 0.2 MG/DL (0.2-1.0); CKMB 1.8 NG/ML (0.0-3.6); CREATINE KINASE 174 U/L (26-308)
[2019-02-09 18:31] VITALS: BP 106/56
--- NOTE | 2019-02-09 18:35 | NUR ---
ED Nurse Note: pt provided with adress to [facility] and food . pt going voluntarily to [facility] via bus.
--- NOTE | 2019-02-09 18:39 | NUR ---
ED Nurse Note: Pt cleared by health care Provider for discharge. DC instructions was given and explained to pt and verbalized understanding of teachings. All medical deviecs such as ID band removed. Pt is AAO x4, ambulatory and left with all personal belongings.
--- NOTE | 2019-02-10 10:54 | Diagnostic Imaging Report ---
Indication: Chest pain Technique: One view of the chest Comparison: 12/09/2018 Findings: Lungs and pleural spaces are clear. The heart size is normal. The aorta is calcified. There is no significant interim change Impression: No acute process
--- NOTE | 2019-02-10 11:32 | Cardiology Report ---
APPROVED REPORT EKG Measurement Heart [id number] Normal sinus rhythm Normal ECG
== END 2019-02-09 18:41 | disposition home or self-care (01) ==
LOC: EDBD 15:10 → EMR 16:05
DX: R07.89 Other chest pain (principal); I10 Essential (primary) hypertension; I25.2 Old myocardial infarction; F17.200 Nicotine dependence, unspecified, uncomplicated; Z88.6 Allergy status to analgesic agent; Z91.040 Latex allergy status; Z86.73 Personal history of transient ischemic attack (TIA), and cerebral infarction without residual deficits; Z98.61 Coronary angioplasty status; Z88.8 Allergy status to other drugs, medicaments and biological substances
CPT/HCPCS: 36415; 71045; 80053; 80307; 82550; 82553; 83690; 84484; 85025; 85610; 85730; 93005; 99283

== ENCOUNTER 2019-03-09 18:08 | Emergency (ER) | payer MEDICAID ==
[~2019-03-09] VITALS: Ht 185.4 cm; Wt 81.6 kg
[~2019-03-09 18:08] MED LIST changes: +LISINOPRIL20 MG ORAL
--- NOTE | 2019-03-09 18:15 | NUR ---
ED Nurse Note: EKG COMPLETED BY SALES REPRESENTATIVE [employer].
--- NOTE | 2019-03-09 18:20 | NUR ---
ED Nurse Note: PT BROUGHT IN FROM [place] BY [facility] DUE TO SUBSTERNAL CP RADIATING DOWN LEFT ARM AND BACK X 45 MINUTES AGO. 162 ASA AND 3 ROUNDS OF NTG GIVEN BY EMS PRIOR TO ARRIVAL. PT AAOX4, PLACED ON HOSPITAL GOWN, CUSTOMER SUPPLY CHAIN ANALYST ON NSR, AND CONT PULSE OX. NO RESPIRATORY DISTRESS NOTED ON ROOM AIR, SATURATING 100%. ERMD AT BEDSIDE. WILL CONTINUE TO MONITOR.
[2019-03-09 18:23] VITALS: BP 103/60
--- NOTE | 2019-03-09 18:27 | Emergency Room Report ---
History of Present Illness General Chief Complaint: Chest Pain Source: Patient, EMS Present Illness HPI Patient is a 44-year-old male presents after increased chest discomfort. Patient been given aspirin by EMS. Patient reports having some prior history of coronary artery disease. He states that he is currently a smoker. He reports having increased shortness of breath. He states that he had previous angioplasty done in 2012. Patient reports having prior history of hypertension.Patient denies any visits to this emergency department within the past few months. He states he recently moved back to this area. Allergies: Coded Allergies: ADHESIVE TAPE (Unverified Allergy, Unknown, 03/09/19) KETOROLAC (Verified Allergy, Unknown, 09/13/18) LATEX (Verified Allergy, Unknown, 09/13/18) TRAMADOL (Verified Allergy, Unknown, 09/13/18) Patient History Past Medical History: see triage record Reviewed Nursing Documentation: PMH: Agreed; PSxH: Agreed Nursing Documentation-PMH Hx Cardiac Problems: Yes - ANGIOPLASTY, SUBSTANCE ABUSE Hx Hypertension: Yes Review of Systems All Other Systems: negative except mentioned in HPI Physical Exam Vital Signs Date Time Temp Pulse Resp B/P (MAP) Pulse Ox O2 Delivery O2 Flow Rate FiO2 03/09/19 18:02 98.2 79 17 118/76 (90) 100 Room Air Sp02 EP Interpretation: reviewed, normal General Appearance: normal inspection, well appearing, no apparent distress, alert, GCS 15, non-toxic Head: atraumatic ENT: normal ENT inspection, hearing grossly normal, normal voice Neck: normal inspection, full range of motion, supple, no bony tend Respiratory: normal inspection, lungs clear, normal breath sounds, no respiratory distress, no retraction, no wheezing Cardiovascular #1: regular rate, rhythm, no edema Gastrointestinal: normal inspection, normal bowel sounds, non tender, soft, no guarding, no hernia Genitourinary: no CVA tenderness Musculoskeletal: normal inspection, back normal, normal range of motion Neurologic: normal inspection, alert, oriented x3, responsive, material control specialist III-XII nml as tested, speech normal Psychiatric: normal inspection, judgement/insight normal, mood/affect normal Medical Decision Making Diagnostic Impression: Primary Impression: Tobacco use Additional Impression: Nonspecific chest pain ER Course Patient presented for chest pain. Differential diagnosis included but was not limited to acute coronary syndrome, pulmonary embolism, pneumonia, aortic dissection, shingles, pneumothorax, aortic dissection, esophageal rupture, pericarditis. EKG showed normal sinus rhythm without acute ST or T wave changes. Chest Xray interpreted by me 1 view showed no evident infiltrate, normal mediastinum, and normal cardiac size. Patient does have some cardiac risk. Patient's laboratory testing and EKG is unremarkable. Patient had a recent emergency department visit this month despite his previous statements that he had not been seen in this emergency department and recently moved back . patient appears to be stable for outpatient follow-up. Labs Test 03/09/19 18:20 03/09/19 19:00 White Blood Count 5.9 K/UL (4.8-10.8) Red Blood Count 4.82 M/UL (4.70-6.10) Hemoglobin 11.3 G/DL (14.2-18.0) Hematocrit 36.0 % (42.0-52.0) Mean Corpuscular Volume 75 FL (80-99) Mean Corpuscular Hemoglobin 23.3 PG (27.0-31.0) Mean Corpuscular Hemoglobin Concent 31.3 G/DL (32.0-36.0) Red Cell Distribution Width 15.0 % (11.6-14.8) Platelet Count 323 K/UL (150-450) Mean Platelet Volume 6.0 FL (6.5-10.1) Neutrophils (%) (Auto) 58.6 % (45.0-75.0) Lymphocytes (%) (Auto) 24.6 % (20.0-45.0) Monocytes (%) (Auto) 11.3 % (1.0-10.0) Eosinophils (%) (Auto) 4.3 % (0.0-3.0) Basophils (%) (Auto) 1.2 % (0.0-2.0) Sodium Level 140 MMOL/L (136-145) Potassium Level 4.7 MMOL/L (3.5-5.1) Chloride Level 108 MMOL/L (98-107) Carbon Dioxide Level 23 MMOL/L (21-32) Anion Gap 9 mmol/L (5-15) Blood Urea Nitrogen 21 mg/dL (7-18) Creatinine 0.6 MG/DL (0.55-1.30) Estimat Glomerular Filtration Rate > 60 mL/min (>60) Glucose Level 97 MG/DL (74-106) Calcium Level 9.1 MG/DL (8.5-10.1) Total Bilirubin 0.3 MG/DL (0.2-1.0) Aspartate Amino Transf (AST/SGOT) 21 U/L (15-37) Alanine Aminotransferase (ALT/SGPT) 26 U/L (12-78) Alkaline Phosphatase 81 U/L (46-116) Total Creatine Kinase 181 U/L (26-308) Creatine Kinase MB 2.4 NG/ML (0.0-3.6) Creatine Kinase MB Relative Index 1.3 Troponin I 0.000 ng/mL (0.000-0.056) Pro-B-Type Natriuretic Peptide 58 pg/mL (0-125) Total Protein 6.7 G/DL (6.4-8.2) Albumin 3.9 G/DL (3.4-5.0) Globulin 2.8 g/dL Albumin/Globulin Ratio 1.4 (1.0-2.7) Lipase 203 U/L (73-393) Urine Color Pale yellow Urine Appearance Clear Urine pH 7 (4.5-8.0) Urine Specific [place] 1.010 (1.005-1.035) Urine Protein Negative (NEGATIVE) Urine Glucose (UA) Negative (NEGATIVE) Urine Ketones Negative (NEGATIVE) Urine Blood Negative (NEGATIVE) Urine Nitrite Negative (NEGATIVE) Urine Bilirubin Negative (NEGATIVE) Urine Urobilinogen Normal MG/DL (0.0-1.0) Urine Leukocyte Esterase Negative (NEGATIVE) Urine Opiates Screen Negative (NEGATIVE) Urine Barbiturates Screen Negative (NEGATIVE) Phencyclidine (PCP) Screen Negative (NEGATIVE) Urine Amphetamines Screen Negative (NEGATIVE) Urine Benzodiazepines Screen Negative (NEGATIVE) Urine Cocaine Screen Negative (NEGATIVE) Urine Marijuana (THC) Screen Positive (NEGATIVE) EKG Diagnostic Results Rate: normal Rhythm: NSR ST Segments: no acute changes Last Vital Signs Date Time Temp Pulse Resp B/P (MAP) Pulse Ox O2 Delivery O2 Flow Rate FiO2 03/09/19 18:02 98.2 79 17 118/76 (90) 100 Room Air Status: unchanged Disposition: HOME, SELF-CARE Condition: Stable Scripts Omeprazole (OMEPRAZOLE) 20 Mg Capsule. 20 MG ORAL DAILY, #30 CAP Prov: Marcelo Chaidez MD 03/09/19 Marcelo Chaidez MD Mar 09, 2019 18:27
[2019-03-09] MEDS ORDERED: Albuterol/Ipratropium 3ml neb HHN ONE (18:30)
--- NOTE | 2019-03-09 18:35 | NUR ---
ED Nurse Note: RT AT BEDSIDE, PT RECEIVING BREATHING TREATMENT AT THIS TIME. IV FLUIDS STARTED. WILL CONTINUE TO MONITOR.
[2019-03-09 18:59] LABS: BASOPHILS % (AUTO) 1.2 % (0.0-2.0); EOSINOPHILS % (AUTO) 4.3 % (0.0-3.0); HEMOGLOBIN 11.3 G/DL (14.2-18.0); LYMPHOCYTES % (AUTO) 24.6 % (20.0-45.0); MEAN CORPUSCULAR VOLUME 75 FL (80-99); MONOCYTES % (AUTO) 11.3 % (1.0-10.0); NEUTROPHILS % (AUTO) 58.6 % (45.0-75.0); PLATELET COUNT 323 K/UL (150-450); RED BLOOD COUNT 4.82 M/UL (4.70-6.10); WHITE BLOOD COUNT 5.9 K/UL (4.8-10.8)
--- NOTE | 2019-03-09 19:04 | NUR ---
ED Nurse Note: URINE SAMPLE SENT DOWN TO LAB.
[2019-03-09 19:06] LABS: ANION GAP 9 mmol/L (5-15); BLOOD UREA NITROGEN 21 mg/dL (7-18); CALCIUM 9.1 MG/DL (8.5-10.1); CARBON DIOXIDE 23 MMOL/L (21-32); CHLORIDE 108 MMOL/L (98-107); CREATININE 0.6 MG/DL (0.55-1.30); POTASSIUM 4.7 MMOL/L (3.5-5.1); SODIUM 140 MMOL/L (136-145)
--- NOTE | 2019-03-09 19:11 | NUR ---
HAND-OFF: Report given to EMPERATRIZ Estrada.
[2019-03-09 19:15] VITALS: BP 111/59
--- NOTE | 2019-03-09 19:15 | NUR ---
ED Nurse Note: Recieved report from am nurse to resume care, pt in bed awake, alert and orietned x 4, pt was here for chest pain, states no pain at all, on cardiac monitoring, v/s stable, NSR, IV site patent, no sdistress noted, pt asking for food, given sandwich and juice per MD will resume care as ordered and closely monitor.
[2019-03-09 19:19] LABS: APPEARANCE,URINE CLEAR; BILIRUBIN, URINE NEGATIVE (NEGATIVE); COLOR,URINE PALE YELLOW; GLUCOSE, URINE (UA) NEGATIVE (NEGATIVE); KETONES,URINE NEGATIVE (NEGATIVE); LEUKOCYTE ESTERASE ,URINE NEGATIVE (NEGATIVE); NITRITE,URINE NEGATIVE (NEGATIVE); PH,URINE 7 (4.5-8.0); PROTEIN,URINE NEGATIVE (NEGATIVE); UROBILINOGEN,URINE NORMAL MG/DL (0.0-1.0)
[2019-03-09 19:19] LABS: ALANINE AMINOTRANSFERASE 26 U/L (12-78); ALBUMIN 3.9 G/DL (3.4-5.0); ALBUMIN/GLOBULIN RATIO 1.4 (1.0-2.7); ALKALINE PHOSPHATASE 81 U/L (46-116); ASPARTATE AMINO TRANSFERASE 21 U/L (15-37); BILIRUBIN,TOTAL 0.3 MG/DL (0.2-1.0); CKMB 2.4 NG/ML (0.0-3.6); CREATINE KINASE 181 U/L (26-308)
[2019-03-09] MEDS ORDERED: OMEPRAZOLE20 M2 ORAL (19:31)
[2019-03-09 19:45] VITALS: BP 111/59
--- NOTE | 2019-03-09 19:45 | NUR ---
ER DISCHARGE NOTE: Patient is cleared to be discharged per ERMD, pt is aox4, on room air, with stable vital signs. pt was given dc and prescription instructions, pt was able to verbalize understanding, pt id band and iv site removed without complications. pt is able to ambulate with steady gait. pt took all belongings.
--- NOTE | 2019-03-10 14:20 | Diagnostic Imaging Report ---
Indication: Chest pain Technique: One view of the chest Comparison: February 09, 2019 Findings: The lungs pleural spaces are clear. The heart size is upper limits normal. The aorta is tortuous and calcified Impression: No acute process
== END 2019-03-09 19:45 | disposition home or self-care (01) ==
LOC: EDBD 18:08 → EMR 19:20
DX: R07.9 Chest pain, unspecified (principal); F17.200 Nicotine dependence, unspecified, uncomplicated; I10 Essential (primary) hypertension; I25.10 Atherosclerotic heart disease of native coronary artery without angina pectoris; Z91.048 Other nonmedicinal substance allergy status; Z91.040 Latex allergy status; Z88.6 Allergy status to analgesic agent; Z88.8 Allergy status to other drugs, medicaments and biological substances; Z98.61 Coronary angioplasty status
CPT/HCPCS: 36415; 71045; 80053; 80307; 81003; 82550; 82553; 83690; 83880; 84484; 85025; 93005; 94640; 94664; J7040; Z7502; 99284; J7620